=== PATIENT | male | born 1995 | race Caucasian/White ===

== ENCOUNTER 2022-10-01 20:40 | Emergency (ER) | payer OTHER ==
[~2022-10-01] VITALS: Ht 165.1 cm; Wt 72.6 kg
[2022-10-01 21:20] VITALS: BP 115/77
--- NOTE | 2022-10-01 21:25 | NUR ---
TO LOBBY FOLLOWING TRIAGE
--- NOTE | 2022-10-02 00:17 | NUR ---
PT TO BED #8
--- NOTE | 2022-10-02 00:30 | NUR ---
FIRST CONTACT WITH PT, PT UPDATED ON POC, DR. FRIAS AT BEDSIDE TO DISCUSS PLAN WITH POSSIBLE TRANSFER AND RESULTS OF DIAGNOSTIC TESTING. PT VERBALIZES FULL UNDERSTANDING. VSS. PT LINDA ANY PAIN AT THIS TIME
[2022-10-02 00:51] LABS: BASOPHILS # (AUTO) 0.1 K/uL (0.00-0.22); BASOPHILS % (AUTO) 0.4 % (0.0-2.0); EOSINOPHILS # (AUTO) 0.1 K/uL (0-0.4); EOSINOPHILS % (AUTO) 0.6 % (0.0-4.0); HEMATOCRIT 44.4 % (36-52); HEMOGLOBIN 14.9 g/dL (12.0-18.0); LYMPHOCYTES # (AUTO) 3.8 K/uL (2.0-11.5); LYMPHOCYTES % (AUTO) 31.2 % (20.5-51.1); MEAN CORPUSCULAR HEMOGLOBIN 30 pg (27-31); MEAN CORPUSCULAR HGB CONC 34 g/dL (33-37); MEAN CORPUSCULAR VOLUME 87.7 fL (80-94); MONOCYTES % (AUTO) 8.5 % (1.7-9.3); NEUTROPHILS # (AUTO) 7.2 K/uL (1.8-7.7); NEUTROPHILS % (AUTO) 59.3 % (42.2-75.2); PLATELET COUNT (AUTO) 244 K/uL (140-450); RED BLOOD CELL COUNT(AUTO) 5.07 MIL/uL (4.20-6.10); RED CELL DISTRIBUTION WIDTH 14.3 % (11.6-13.7); WHITE BLOOD COUNT (AUTO) 12.1 K/uL (4.8-10.8)
[2022-10-02 01:24] LABS: ALBUMIN 4.8 g/dL (3.4-5.0); ASPARTATE AMINOTRANSFERASE 24 U/L (15-37); CARBON DIOXIDE 27.4 mmol/L (21-32); CHLORIDE 104 mmol/L (98-107); CREATININE 0.9 mg/dL (0.6-1.3); GFR ARICAN-AMERICAN 131 mL/min (>90); GLUCOSE 100 mg/dL (74-106); POTASSIUM 3.4 mmol/L (3.5-5.1); SODIUM SERUM 144 mmol/L (136-145); TOTAL BILIRUBIN 1.7 mg/dL (0.0-1.0); UREA NITROGEN, BLOOD 13 mg/dL (7-18)
[2022-10-02 01:37] LABS: PROTHROMBIN TIME 10.2 secs (10.8-13.4)
--- NOTE | 2022-10-02 02:01 | NUR ---
[facility] TO [facility], BY JOSE, MIKI, ETA [id number]
--- NOTE | 2022-10-02 02:12 | NUR ---
[facility] AT BEDSIDE FOR [place]
--- NOTE | 2022-10-02 02:29 | NUR ---
REPORT CALLED TO AMAURY MONTGOMERY AT [facility] WITH FULL RETURNED VERBAL UNDERSTANDING. VSS. DENIES ANY PAIN. [facility]-15.
--- NOTE | 2022-10-02 02:38 | NUR ---
Patient to be transferred to [facility]. Is being transferred due to HIGHER LEVEL OF CARE. Receiving facility has accepting physician and available space. ER physician has signed transfer form. Patient or responsible libertarian has agreed to transfer and signed form. Patient belongings inventoried and will be sent with patient. Copy of nursing notes, lab reports, EKG, Physicians Orders and X-rays to be sent with patient. Report called to AMAURY MONTGOMERY at receiving facility. [facility] HAS TRANSPORTED THE PT.
[2022-10-02 02:40] VITALS: BP 119/78
== END 2022-10-02 02:36 | disposition short-term general hospital (02) ==
LOC: MED 20:40
DX: S09.90XA Unspecified injury of head, initial encounter (principal); I61.8 Other nontraumatic intracerebral hemorrhage; W18.30XA Fall on same level, unspecified, initial encounter; Y93.89 Activity, other specified; Y92.89 Other specified places as the place of occurrence of the external cause; Y99.8 Other external cause status
CPT/HCPCS: 36415; 70450; 80053; 84484; 85025; 85610; 85730; 99291